=== PATIENT | female | born 1970 | race Caucasian/White ===

== ENCOUNTER 2021-01-05 09:17 | Emergency (ER) | payer OTHER, SELFPAY ==
[2021-01-05 09:26] VITALS: BP 130/74; PULSE 80; RESP 16; TEMP 37.4; O2SAT 100
--- NOTE | 2021-01-05 10:03 | ED.URI ---
HPI - URI/Sore Throat General Chief Complaint: Upper Respiratory Infection Stated Complaint: Possible Sinus Infection Source: patient and RN notes reviewed Limitations: no limitations History of Present Illness HPI Narrative: The patient, previously mostly healthy non-smoker/occasional drinker, presents with half week history of postnasal drip, sinus congestion, myalgias with frontal headache after recent flight. No fever, cough, sneezing/wheezing, triggers [smokers/pets]; no Covid vaccination no loss of taste/smell, CP, cough, S OB, vomiting/diarrhea Related Data Home Medications Medication Instructions Recorded Confirmed cetirizine [Zyrtec] 10 mg PO DAILY PRN 01/05/21 01/05/21 Allergies Allergy/AdvReac Type Severity Reaction Status Date / Time No Known Allergies Allergy Verified 01/05/21 09:37 Review of Systems Review of Systems: Narrative: General/Constitutional: No weight loss,fever Eyes: N0: Redness,discharge Ears/Nose/Throat: No: Epistaxis,ear discharge Respiratory: Denies: Hemoptysis Gastrointestinal: No Vomiting, Bleeding-rectal Skin: No Lumps, eruption Neurologic: No Focal Weakness,Sz Hematologic: Denies: Petechiae/Purpura Psychiatric: No: Suicida ideationl All Other Systems: Reviewed and Negative PMFSH Comments At time of signature, agree with nursing past medical, surgical, social and family history. There is no relevant family history pertinent to the presenting complaint Exam Narrative: Exam Narrative: General Appearance: Well appearing, Well nourished Conjunctiva clear Ears: Auditory canal normal, TM normal Nose: Rhinorrhea, Mucousal erythema Mouth/Throat: MM moist, Uvula midline, Pharyngeal erythema Neck: Supple, No adenopathy Respiratory: No respiratory distress, Breath sounds equal, Clear to auscultation Cardiovascular: RRR, No JVD Musculoskeletal: Non tender, Normal strength,Warm, Dry Neurological: A&O x3, affect Course Vital Signs Vital signs: Vital Signs Temperature 99.3 F 01/05/21 09:26 Pulse Rate 80 01/05/21 09:26 Respiratory Rate 16 01/05/21 09:26 Blood Pressure 130/74 01/05/21 09:26 Pulse Oximetry 100 01/05/21 09:26 Temperature 99.3 F 01/05/21 09:26 Pulse Rate 80 01/05/21 09:26 Respiratory Rate 16 01/05/21 09:26 Blood Pressure 130/74 01/05/21 09:26 Pulse Oximetry 100 01/05/21 09:26 Discharge Plan Discharge Clinical Impression: Upper respiratory infection Patient Disposition: Home, Self-Care Condition: Stable Instructions: Allergic Rhinitis (ED) Prescriptions: New azithromycin 250 mg tablet See Rx Instructions .ROUTE .COMPLEX Qty: 6 RF: 0 azelastine 137 mcg (0.1 %) aerosol,spray 137 mcg NASAL Q12H Qty: 30 RF: 0 No Action cetirizine [Zyrtec] 10 mg Tablet 10 mg PO DAILY PRN (Reason: Allergic Symptoms) RF: 0 Follow-up/Referrals: PHYSICIAN,STANDPIPE TENDER [Primary Care Provider] -
== END 2021-01-05 10:06 | disposition home or self-care (01) ==
PROVIDERS: Emergency Provider Emergency Medicine
DX: J06.9 Acute upper respiratory infection, unspecified (principal); Z20.822 Contact with and (suspected) exposure to COVID-19
CPT/HCPCS: 87426; 99213; C9803; G0463